=== PATIENT | female | born 1940 | race Caucasian/White ===

== ENCOUNTER 2018-05-26 12:19 | Observation (INO) | payer MEDICARE ==
--- NOTE | 2018-05-26 12:43 | ED ---
Dizziness - HPI Summary HPI Summary: This pt is a 77 y/o female presenting to [facility] via EMS from home for near syncopal episode while on toilet. Pt has hx of dementia is unable to give history. ED nurse reports the pt was in the bathroom having a bowel movement when she became dizzy and diaphoretic. EMS states pt did not have a syncopal episode. Pt's family are on their way to the ED. reports the pt got up from bed this morning to use the bathroom. He states the pt urinated in the toilet and suddenly became unresponsive. Pt began to stare off and was not responding to her . Additionally pt was very diaphoretic. HPI IS LIMITED DUE TO LEVEL 5 CAVEAT - dementia. - History Of Current Complaint Chief Complaint: EDDizziness Stated Complaint: AMS Time Seen by Provider: 05/26/18 12:27 Hx Obtained From: Family/Pest Controller Assistant - , EMS, Other: - ED Nurse Hx From Patient Unobtainable Due To: Dementia Onset/Duration: Resolved Severity Currently: None Character: Lightheaded, Dizzy Aggravating Factor(s): Other - unknown Alleviating Factor(s): Other - unknown Associated Signs And Symptoms: Positive: Diaphoresis. Negative: Fever - Allergies/Home Medications Allergies/Adverse Reactions: Allergies Allergy/AdvReac Type Severity Reaction Status Date / Time No Known Allergies Allergy Verified 03/21/18 13:16 Home Medications: Home Medications Alendronate (NF) [Fosamax (NF)] 70 mg PO WEEKLY 05/26/18 [History Confirmed ] Cholecalciferol (Vitamin D3) [Vitamin D3] 2,000 unit PO BEDTIME 05/26/18 [ History Confirmed 05/27/18] Cyanocobalamin TAB* [Vitamin B12 TAB*] 1,000 mcg PO DAILY 05/26/18 [History] Donepezil TAB* [Aricept 5 MG TAB*] 10 mg PO DAILY 05/26/18 [History Confirmed ] Losartan TAB* [Cozaar TAB*] 25 mg PO DAILY 05/26/18 [History Confirmed 05/26/18] Memantine HCl [Memantine HCl ER] 10 mg PO BEDTIME 05/26/18 [History Confirmed ] Metoprolol Tartrate TAB* [Lopressor TAB*] 25 mg PO DAILY 05/26/18 [History Confirmed 05/26/18] Rosuvastatin (NF) [Crestor] 20 mg PO .4 DAYS A WEEK 05/26/18 [History Confirmed 05/26/18] PMH/Surg Hx/FS Hx/Imm Hx Endocrine/Hematology History: Denies: Hx Anticoagulant Therapy, Hx Diabetes, Hx Systemic Lupus Erythematosus, Hx Thyroid Disease Cardiovascular History: Reports: Hx Hypercholesterolemia, Hx Hypertension, Other Cardiovascular Problems/Disorders - chronic left BBB Denies: Hx Congestive Heart Failure, Hx Pacemaker/ICD Respiratory History: Denies: Hx Asthma, Hx Chronic Obstructive Pulmonary Disease (COPD) GI History: Reports: Hx Diverticulosis, Hx Ileostomy - Reversal of colostomy Denies: Hx Ulcer, Other GI Disorders History: 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 Denies: Hx Dialysis Musculoskeletal History: Reports: Hx Arthritis - BACK, NECK,, Hx Back Problems Denies: Hx Rheumatoid Arthritis, Hx Osteoporosis Sensory History: Reports: Hx Contacts or Glasses Denies: Hx Hearing Aid Opthamlomology History: Reports: Hx Contacts or Glasses Neurological History: Reports: Hx Dementia, Other Neuro Impairments/Disorders - PAIN CLINIC PT Denies: Hx Seizures Psychiatric History: Reports: Hx Anxiety - CONTROL WITH MEDICATION Denies: Hx Substance Abuse - Cancer History Hx Chemotherapy: No - Surgical History Surgery Procedure, Year, and Place: gallbladder removed, bowel surgery Hx Anesthesia Reactions: No - Immunization History Date of Tetanus Vaccine: Unknown Date of Influenza Vaccine: 2012 Infectious Disease History: No Infectious Disease History: Denies: Hx Hepatitis, Hx Human Immunodeficiency Virus (HIV), Traveled Outside the [place] in Last 30 Days - Family History Known Family History: Positive: Unknown - due to level 5 caveat - dementia - Social History Alcohol Use: None Substance Use Type: Reports: None Substance Use Comment - Amount & Last Used: oxycodone Smoking Status (MU): Never Smoked Tobacco Have You Smoked in the Last Year: No Review of Systems - ROS Summary Review of Systems Summary: ROS IS LIMITED DUE TO LEVEL 5 CAVEAT - pt with dementia Positive: Skin Diaphoresis. Negative: Fever Neurological: Other - dizziness, unresponsive All Other Systems Reviewed And Are Negative: No Physical Exam - Summary Physical Exam Summary: VITAL SIGNS: Reviewed. GENERAL: Patient is a well-developed and nourished female who is lying comfortable in the stretcher. Patient is not in any acute respiratory distress. HEAD AND FACE: No signs of trauma. No ecchymosis, hematomas or skull depressions. No sinus tenderness. EYES: PERRLA, EOMI x 2, No injected conjunctiva, no nystagmus. EARS: Hearing grossly intact. Ear canals and tympanic membranes are within normal limits. MOUTH: Oropharynx within normal limits. NECK: Supple, trachea is midline, no adenopathy, no JVD, no carotid bruit, no c- spine tenderness, neck with full ROM. CHEST: Symmetric, no tenderness at palpation LUNGS: Clear to auscultation bilaterally. No wheezing or crackles. CVS: Regular rate and rhythm, S1 and S2 present, no gallops appreciated. Ejection systolic murmur 4/6. ABDOMEN: Soft, non-tender. No signs of distention. No rebound, no guarding, and no masses palpated. Bowel sounds are normal. EXTREMITIES: FROM in all major joints, no edema, no cyanosis or clubbing. NEURO: Alert but not oriented. Pt is unable to give history. No acute neurological deficits. Speech is normal and follows commands. SKIN: Dry and warm GCS: 15 Triage Information Reviewed: Yes Vital Signs On Initial Exam: Initial Vitals Temp Pulse Resp BP Pulse Ox 97 F 76 16 90/53 97 05/26/18 12:26 05/26/18 12:26 05/26/18 12:26 05/26/18 12:26 05/26/18 12:26 Vital Signs Reviewed: Yes Completion Of Physical Exam Limited Due To: Dementia, Level 5 - dementia Diagnostics - Vital Signs Vital Signs Temp Pulse Resp BP Pulse Ox 05/26/18 12:26 97 F 76 16 90/53 97 - Laboratory Result Diagrams: 05/27/18 06:14 05/26/18 12:36 Lab Statement: Any lab studies that have been ordered have been reviewed, and results considered in the medical decision making process. - Radiology Chest XR Xray Interpretation: No Acute Changes - IMPRESSION: No radiographic evidence for acute cardiopulmonary abnormality on this portable chest x-ray. Dr. Smith has reviewed this report. Radiology Interpretation Completed By: Radiologist - CT Brain CT CT Interpretation: No Acute Changes - IMPRESSION: 1. No evidence for acute intracranial abnormality. 2. Diffuse atrophy and findings suggestive of mild chronic small vessel ischemic changes. Dr. Smith has reviewed this report. CT Interpretation Completed By: Radiologist - EKG 12:37 Cardiac Rate: NL - at 77 bpm EKG Rhythm: Sinus Rhythm EKG Interpretation: LBBB. EKG Comparison: No Significant Change - similar to prior EKG on 07/12/14. Dizzy Course/Dx - Course Assessment/Plan: Patient is a 77-year-old female who presents to the emergency department via ambulance with a chief complaint of near syncopal episode and diaphoresis. I'm unable to obtain any history from the patient since she is demented and she is unable to give any history. She has past medical history significant for hypertension, dyslipidemia, coronary artery disease, a left bundle branch block, dementia, renal injury and chronic back pain. EKG shows a sinus rhythm at 70 bpm. The patient has a left bundle branch block. EKG is similar to a previous EKG done on 07/12/14. Blood work without any significant abnormality except for BUN at 25 and creatinine 113, glucose 146, calcium 10.5, urinalysis shows 2+ protein, trace ketones, leukocytes trace, white blood cells of 3+, red blood cells of 1+, positive squamous epithelial cells, bacteria 1+. Chest x-ray impression: Negative for an acute pathology. Head CT impression: No evidence for acute intracranial abnormality. Initially the patient was slightly hypertensive therefore the patient was given IV fluids. She was started on Rocephin 2 g IV for possible UTI. At this time I discussed my physical exam and findings with Dr. Pradhan, from the hospitalist services, who accepted the patient for admission. - Diagnoses Provider Diagnoses: Unresponsive episode, UTI (urinary tract infection) - Provider Notifications Discussed Care Of Patient With: Chidi Pradhan - hospitalist Time Discussed With Above Provider: 14:37 Instructed by Provider To: Admit As Inpatient Discharge - Sign-Out/Discharge Documenting (check all that apply): Patient Departure [place] [facility] [facility] [place] Condition: Stable Disposition: ADMITTED TO [facility] - Billing Disposition and Condition Condition: STABLE Disposition: Admitted to [facility] - Attestation Statements Document Initiated by Scribe: Yes Documenting Scribe: Magalys Potts Provider For Whom Scribe is Documenting (Include Credential): Benigno Smith MD Scribe Attestation: IMagalys, scribed for Benigno Smith MD on 09/26/18 at 0746. Scribe Documentation Reviewed: Yes Provider Attestation: The documentation as recorded by the scribe, Magalys Potts accurately reflects the service I personally performed and the decisions made by me, Benigno Smith MD
[2018-05-26] MEDS ORDERED: NS 0.9% 1000 ML* 1,000 ML IV SCH (12:45)
[2018-05-26 12:48] LABS: ABS Basophils 0 10^3/ul (0-0.2); ABS Eosinophils 0.1 10^3/ul (0-0.6); ABS Lymphocytes 0.9 10^3/ul (1.0-4.8); ABS Monocytes 0.6 10^3/ul (0-0.8); ABS Nucleated RBC 0 10^3/ul; Eosinophil % 0.6 % (0-6); Hematocrit 40 % (35-47); Hemoglobin 13.6 g/dl (12.0-16.0); Lymphocyte % 9.8 % (25-47); Mean Corpuscular HGB Conc 34 g/dl (31-36); Mean Corpuscular Hemoglobin 32 pg (27-31); Mean Corpuscular Volume 94 fL (80-97); Nucleated Red Blood Cells % 0.1; Platelet Count 140 10^3/ul (150-450); Red Blood Count 4.27 10^6/ul (4.00-5.40); Red Cell Distribution Width 13 % (10.5-15); White Blood Count 9.7 10^3/ul (3.5-10.8)
--- NOTE | 2018-05-26 13:19 | RAD ---
INDICATION: Near syncope COMPARISON: Similar chest x-ray July 11, 2014 TECHNIQUE: Single AP portable view of the chest was obtained. FINDINGS: Image quality is compromised due to the relative inferiority of a portable chest x-ray. The heart and mediastinum exhibit normal size and contour. The lungs are grossly clear. There is no evidence of a large pleural effusion. Surgical clips overlying the gallbladder fossa are unchanged in the prior x-ray. Visualized bones are normal for the patient's age. IMPRESSION: No radiographic evidence for acute cardiopulmonary abnormality on this portable chest x-ray.
[2018-05-26 13:21] LABS: EGFR Non-African American 46.6 (>60)
[2018-05-26 13:55] LABS: Urine Appearance Cloudy; Urine Blood Negative (Negative); Urine Color Amber; Urine Ketones Trace (Negative); Urine Protein 2+(100 mg/dL) (Negative); Urine Red Blood Cell 1+(3-5/hpf) (Absent); Urine Specific Gravity 1.017 (1.010-1.030); Urine Urobilinogen Positive (Negative); Urine White Blood Cell 3+(>20/hpf) (Absent)
[2018-05-26] MEDS ORDERED: cefTRIAXone(*) 1 GM in NS 0.9% 50 ML* 50 ML IVPB SCH (14:00)
--- NOTE | 2018-05-26 14:01 | RAD ---
INDICATION: Near syncope. COMPARISON: Comparison is made with a prior CT of the brain from July 11, 2014. TECHNIQUE: Contiguous axial sections of the brain were obtained from the skull base to the vertex without contrast. FINDINGS: The ventricles, cisterns and sulci are enlarged consistent with diffuse atrophy. There are small areas of decreased density in the subcortical and periventricular white matter suggestive of mild chronic small vessel ischemic changes. There is no evidence for hemorrhage. No significant focal osseous abnormality is seen. The visualized portion of the paranasal sinuses and mastoid air cells appear clear. IMPRESSION: 1. NO EVIDENCE FOR ACUTE INTRACRANIAL ABNORMALITY. 2. DIFFUSE ATROPHY AND FINDINGS SUGGESTIVE OF MILD CHRONIC SMALL VESSEL ISCHEMIC CHANGES.
[2018-05-26] MEDS ORDERED: cefTRIAXone(*) 2 GM in NS 0.9% 50 ML* 100 ML IVPB ONE (14:12)
[2018-05-26] MEDS: NS 0.9% 1000 ML* 1,000 ML IV SCH (17:59)
--- NOTE | 2018-05-26 18:04 | HP ---
CC: Dr. Omari Raman * HISTORY AND PHYSICAL: DATE OF ADMISSION: 05/26/18 PRIMARY CARE PROVIDER: Dr. Omari Raman. ATTENDING PHYSICIAN: Dr. Chidi Pradhan * (dictated by Ciera Le NP) CHIEF COMPLAINT: Syncopal episode. HISTORY OF PRESENT ILLNESS: Ms. Rasmussen is a 77-year-old female with past medical history significant for chronic low back pain, hypertension, history of gastritis, history of V-tach with exercise stress test, hyperlipidemia, chronic left bundle branch block, dementia, unsteady gait, and moderate aortic stenosis , who according to her has been in her usual state of health, when she was sitting in the toilet this morning, she became dizzy and diaphoretic and had an episode of loss of consciousness. The patient has a history of dementia and most of this history is obtained from her . He denies any recent history of fevers, chills, complaints of chest pain, shortness of breath, nausea , vomiting, or diarrhea. He states that she chronically has low back pain. He states that sometimes her memory is better than others. He states she has had no complaints of urinary symptoms such as dysuria, urgency, or changes in frequency. He reports that due to her unsteady gait, she is no longer walking with a walker and they are assisting her with walking. Due to her syncopal episode, they called EMS and she was brought to the emergency room for further evaluation. While in the emergency room, she has labs showing a positive UA. Her CBC was unremarkable with the exception of thrombocytopenia, which appears to be above her baseline. Also, noted to have an elevated BUN and creatinine. She had a brain CT showing no acute findings. She had an EKG showing a left bundle branch block similar to previous from 2013. Lactic acid 1.7. Hospitalists were asked to evaluate the patient for admission. PAST MEDICAL HISTORY: 1. Chronic low back pain. 2. Hypertension. 3. History of gastritis. 4. History of V-tach with exercise stress test. 5. Hyperlipidemia. 6. Chronic left bundle branch block. 7. Dementia. 8. Unsteady gait. 9. Moderate aortic stenosis. PAST SURGICAL HISTORY: 1. Status post cholecystectomy. 2. Status post cardiac catheterization showing a 30% to 40% LAD stenosis. MEDICATIONS: Home medications include: 1. Vitamin D3 2000 units oral daily. 2. Memantine 28 mg oral daily. 3. Aricept 10 mg oral daily. 4. Metoprolol tartrate 25 mg oral daily. 5. Xanax 0.125 to 0.25 mg 3 times daily as needed for anxiety. 6. Crestor 20 mg oral 4 days a week. 7. Aspirin 81 mg oral daily at bedtime. 8. Omeprazole 40 mg oral daily. 9. Losartan 25 mg oral daily. 10. Vitamin B12 1000 mcg oral daily. 11. Fosamax 70 mg oral weekly. ALLERGIES: No known drug allergies. FAMILY HISTORY: The patient's sister had an PR in her 50s. Denies any family history of diabetes or cancer. SOCIAL HISTORY: The patient's denies any tobacco, alcohol, or recreational drug use. She lives with her with the assistance of a shrub grower and their daughter. Her , Kin Rasmussen, will be her surrogate decision maker in the event she is unable to make decisions for herself. REVIEW OF SYSTEMS: I performed an 11-point review of systems. All the pertinent positives and negatives are mentioned in the history of present illness. The remaining review of systems is negative. PHYSICAL EXAMINATION GENERAL APPEARANCE: The patient is alert, pleasant, appears to be in no acute distress. VITAL SIGNS: Temperature 97, heart rate 76, respiratory rate 16, O2 sat 97% on room air, blood pressure 90/53. HEENT: Normocephalic, atraumatic. Pupils are equal and reactive to light. Extraocular movements are intact. RESPIRATORY: There is no accessory muscle use. Lungs are clear to auscultation. CARDIOVASCULAR: Regular rate and rhythm. S1, S2 present. There is a grade 3/ 6 systolic murmur heard best in the left upper sternal border. There are no rubs or gallops heard. ABDOMEN: Soft, nontender, nondistended. Bowel sounds present x4. EXTREMITIES: No lower extremity edema. DP and PT pulses are 2+ and symmetric. MUSCULOSKELETAL: There is no clubbing or cyanosis noted. The patient exhibits good strength in all extremities. NEUROLOGICAL: The patient is alert and confused. She believes that she is at her home. She is unsure of year or the situation. She is oriented to person. Cranial nerves II through XII are grossly intact. PSYCHOLOGICAL: The patient is calm and cooperative. SKIN: There are no rashes or abnormalities seen. DIAGNOSTIC STUDIES/LAB DATA: Sodium 140, potassium 4.6, chloride 106, CO2 27, BUN 25, creatinine 1.13, glucose 146. White blood cell count 9.7, hemoglobin 13.6, hematocrit 40, platelet count 140. Lactic acid 1.7. Urinalysis shows 2+ protein, trace ketones, 1+ bilirubin, positive urobilinogen , trace leukocyte esterase, 3+ wbc's, 1+ rbc's, squamous epithelial cells present, urine bacteria 1+, hyaline casts present. EKG shows a sinus rhythm, left bundle branch block, rate of 70. There are no acute signs of ischemia, this is similar to previous from 07/12/14. Brain CT from today. Radiologist's impression, no evidence for acute intracranial abnormality. Diffuse atrophy and findings suggestive of mild chronic small vessel ischemic changes. Chest x-ray from today. Radiologist's impression: No radiographic evidence for acute cardiopulmonary abnormalities on this portable chest x-ray. IMPRESSION: Ms. Rasmussen is a 77-year-old female with a past medical history significant for chronic low back pain, hypertension, gastritis, history of ventricular tachycardia, hyperlipidemia, chronic left bundle branch block, dementia, unsteady gait, moderate aortic stenosis, who presents to the emergency room after a syncopal episode at home today. She will be admitted as an observation for syncope and urinary tract infection. ASSESSMENT/PLAN: 1. Syncope. I suspect this is a vasovagal episode as the patient was sitting on the toilet when this occurred. We will monitor her on telemetry. Her last echo was done in 2013. I am going to hold off on another echo; at that time, she had a moderate aortic stenosis. I will check orthostatic vital signs and give her some gentle IV hydration. 2. Urinary tract infection. The patient appears to have a positive UA. I will give her ceftriaxone, IV fluids. At this time, she has no leukocytosis. We will recheck her labs tomorrow. 3. Acute kidney injury. I suspect this is prerenal. I am going to give her some IV fluids, recheck her labs tomorrow. If she continues to have elevated BUN and creatinine, we can check a FENa. 4. Chronic low back pain. The patient will have supportive care. 5. Hypertension. I am going to continue her metoprolol tartrate with hold parameters. I am going to hold her losartan in the setting of an acute illness and her hypotension. 6. Hyperlipidemia. She will be continued on a statin. She will have a substitute of atorvastatin here and resumed on her home Crestor at discharge. 7. Dementia. She will be continued on her home memantine and Aricept. 8. Aortic stenosis. The patient has known moderate aortic stenosis. She should continue to follow with Cardiology. 9. Fluids, electrolytes, and nutrition. Heart-healthy diet. 10. Code status. Full code. 11. DVT prophylaxis. She is a high risk and will have subcu heparin. 12. Disposition. Observation. TIME SPENT: Time for this admission was approximately 60 minutes, greater than half of that was spent with the patient and her discussing medications, past medical history, the events leading to her arrival today, performing a physical examination. The case has been reviewed with the attending, Dr. Pradhan, who agrees with the plan of care. Reviewed by NIKIA GOODWIN 05/28/18 1639 [id number]/[facility] #: [id number] MERLE
[2018-05-26] MEDS: Aspirin 81 mg CHEW TAB* 81 MG TAB.CHEW PO SCH (19:57)
[2018-05-26] MEDS: Acetaminophen TAB* 325 MG PO PRN (19:57)
[2018-05-26] MEDS: CMCS Rosuvastatin (NF) 20 MG TAB PO SCH (20:05)
[2018-05-26] MEDS: Heparin VIAL(*) 5000 UNITS/ML VIAL (FIVE THOUSAND) SUBCUT SCH (22:08)
[2018-05-27] MEDS: NS 0.9% 1000 ML* 1,000 ML IV SCH (05:05)
[2018-05-27] MEDS: Heparin VIAL(*) 5000 UNITS/ML VIAL (FIVE THOUSAND) SUBCUT SCH ×3 (05:32→21:48)
[2018-05-27 06:42] LABS: ABS Basophils 0 10^3/ul (0-0.2); ABS Eosinophils 0 10^3/ul (0-0.6); ABS Lymphocytes 1.1 10^3/ul (1.0-4.8); ABS Monocytes 1.1 10^3/ul (0-0.8); ABS Neutrophils 8.8 10^3/ul (1.5-7.7); ABS Nucleated RBC 0 10^3/ul; Eosinophil % 0.4 % (0-6); Hematocrit 30 % (35-47); Hemoglobin 10.5 g/dl (12.0-16.0); Mean Corpuscular HGB Conc 35 g/dl (31-36); Mean Corpuscular Hemoglobin 32 pg (27-31); Mean Corpuscular Volume 93 fL (80-97); Mean Platelet Volume 10.5 um3 (7.4-10.4); Nucleated Red Blood Cells % 0.1; Platelet Count 98 10^3/ul (150-450); Red Blood Count 3.27 10^6/ul (4.00-5.40); Red Cell Distribution Width 13 % (10.5-15); White Blood Count 11.1 10^3/ul (3.5-10.8)
[2018-05-27] MEDS: Acetaminophen TAB* 325 MG PO PRN ×2 (11:11→20:20)
[2018-05-27] MEDS: Donepezil TAB* 5 MG PO SCH (11:13)
[2018-05-27] MEDS: Cyanocobalamin TAB* 500 MCG PO SCH (11:13)
[2018-05-27] MEDS: Metoprolol Tartrate TAB* 25 MG PO SCH (11:13)
[2018-05-27] MEDS: Omeprazole CAP* 20 MG PO SCH (11:14)
[2018-05-27] MEDS: Memantine XR CAP* 28 MG CAP.XR PO SCH (11:15)
[2018-05-27] MEDS: cefTRIAXone(*) 1 GM in NS 0.9% 50 ML* 50 ML IVPB SCH (15:34)
--- NOTE | 2018-05-27 17:01 | PN ---
Subjective Date of Service: 05/27/18 Interval History: Patient with dementia, able to state name, and identify , unable to activity participate in conversation. Patient denies chest pain or shortness of breath, unclear if she understands questions. Family History: Unchanged from Admission Social History: Unchanged from Admission Past Medical History: Unchanged from Admission Objective Active Medications: Acetaminophen (Tylenol Tab*) 650 mg PO Q4H PRN PRN Reason: FEVER/PAIN Last Admin: 05/27/18 11:11 Dose: 650 mg Aspirin (Aspirin 81 Mg Chew Tab*) 81 mg PO BEDTIME [facility] Last Admin: 05/26/18 19:57 Dose: 81 mg Cyanocobalamin (Vitamin B12 Tab*) 1,000 mcg PO DAILY [facility] Last Admin: 05/27/18 11:13 Dose: 1,000 mcg Donepezil HCl (Aricept Tab*) 10 mg PO DAILY [facility] Last Admin: 05/27/18 11:13 Dose: 10 mg Heparin Sodium (Porcine) (Heparin Vial(*)) 5,000 units SUBCUT Q8HR [facility] Last Admin: 05/27/18 15:34 Dose: 5,000 units Ceftriaxone Sodium 1 gm/ (Sodium Chloride) 50 mls @ 200 mls/hr IVPB Q24H [facility] Last Admin: 05/27/18 15:34 Dose: 200 mls/hr Memantine (Namenda Xr Cap*) 28 mg PO DAILY [facility] Last Admin: 05/27/18 11:15 Dose: 28 mg Metoprolol Tartrate (Lopressor Tab*) 25 mg PO DAILY [facility] Last Admin: 05/27/18 11:13 Dose: 25 mg Omeprazole (Prilosec Cap*) 40 mg PO DAILY [facility] Last Admin: 05/27/18 11:14 Dose: 40 mg Rosuvastatin Calcium (Crestor (Nf)) 20 mg PO [id number]@2100 [facility] Last Admin: 05/26/18 20:05 Dose: 20 mg Vital Signs - 8 hr 05/27/18 11:21 Temperature 98.9 F Pulse Rate 76 Respiratory 16 Rate Blood Pressure 125/44 (mmHg) O2 Sat by Pulse 96 Oximetry Oxygen Devices in Use Now: None Appearance: appears comfortable resting in bed, no acute distress, minimal verbal communication - states is baseline. Eyes: No Scleral Icterus Ears/Nose/Mouth/Throat: Mucous Membranes Moist Neck: NL Appearance and Movements; NL JVP, Trachea Midline Respiratory: Symmetrical Chest Expansion and Respiratory Effort, Clear to Auscultation Cardiovascular: No Edema, - - S1 S2 murmur Abdominal: NL Sounds; No Tenderness; No Distention Extremities: No Edema, No Clubbing, Cyanosis Skin: No Rash or Ulcers Neurological: - - alert to person, confused to place, time and situation Nutrition: Taking PO's Result Diagrams: 05/28/18 07:34 05/28/18 07:34 Microbiology and Other Data: Microbiology 05/26/18 13:26 Urine Culture - Preliminary Urine Escherichia Coli Assess/Plan/Problems-Billing Assessment: Ms. Rasmussen is a 77 y.o female with a past medical hx of dementia. htn,hld, aortic stenosis who presented to the ER with syncopal episode while on the toilet. Patient had routine lab work and found to have a UTI - Patient Problems (1) Syncope Current Visit: Yes Status: Acute Code(s): R55 - SYNCOPE AND COLLAPSE SNOMED Code(s): 665942044 Comment: - suspect this is related to underlying UTI vs vasovagel as the patient was using the bathroom during the episode - will get ECHO tomorrow (2) UTI (urinary tract infection) Current Visit: Yes Status: Acute Comment: -Ecoli - will contiue ceftriaxone - patient with low grade fever today 100.4 (3) DAVID (acute kidney injury) Current Visit: No Status: Acute Priority: High Onset Date: 07/11/14 Code (s): N17.9 - ACUTE KIDNEY FAILURE, UNSPECIFIED SNOMED Code(s): 26925143 Comment: - suspect this is related to UTI and dehydration - will continue to monitor - repeat BMP in AM (4) CAD (coronary artery disease) Current Visit: No Status: Chronic Code(s): I25.10 - ATHSCL HEART DISEASE OF [place] CORONARY ARTERY W/O ANG PCTRS SNOMED Code(s): 10493945 Comment: continue metoprolol (5) Dementia Current Visit: No Status: Chronic Code(s): F03.90 - UNSPECIFIED DEMENTIA WITHOUT BEHAVIORAL DISTURBANCE SNOMED Code(s): 77273012 Comment: continue aricept and namenda - supportive care (6) Dyslipidemia Current Visit: No Status: Chronic Code(s): E78.5 - HYPERLIPIDEMIA, UNSPECIFIED SNOMED Code(s): 699759018 Comment: continue crestor (7) HTN (hypertension) Current Visit: No Status: Chronic Code(s): I10 - ESSENTIAL (PRIMARY) HYPERTENSION SNOMED Code(s): 22508972 Comment: controlled- continue metoprolol (8) DVT prophylaxis Current Visit: Yes Status: Acute Code(s): TIN8144 - SNOMED Code(s): 190832292 Comment: HSQ (9) Full code status Current Visit: Yes Status: Acute Code(s): Z78.9 - OTHER SPECIFIED HEALTH STATUS SNOMED Code(s): 480521397 Status and Disposition: OBV - home with [facility]NS referral for increase help at home.
[2018-05-27] MEDS: Aspirin 81 mg CHEW TAB* 81 MG TAB.CHEW PO SCH (20:21)
[2018-05-27] MEDS: CMCS Rosuvastatin (NF) 20 MG TAB PO SCH (20:21)
[2018-05-28] MEDS: Heparin VIAL(*) 5000 UNITS/ML VIAL (FIVE THOUSAND) SUBCUT SCH ×2 (05:54→15:03)
[2018-05-28 08:15] LABS: ABS Basophils 0 10^3/ul (0-0.2); ABS Eosinophils 0.1 10^3/ul (0-0.6); ABS Lymphocytes 1.1 10^3/ul (1.0-4.8); ABS Monocytes 0.6 10^3/ul (0-0.8); ABS Neutrophils 5.5 10^3/ul (1.5-7.7); ABS Nucleated RBC 0 10^3/ul; Eosinophil % 1.3 % (0-6); Hematocrit 31 % (35-47); Hemoglobin 10.9 g/dl (12.0-16.0); Lymphocyte % 14.6 % (25-47); Mean Corpuscular HGB Conc 35 g/dl (31-36); Mean Corpuscular Hemoglobin 32 pg (27-31); Mean Corpuscular Volume 93 fL (80-97); Mean Platelet Volume 10.9 um3 (7.4-10.4); Nucleated Red Blood Cells % 0; Platelet Count 92 10^3/ul (150-450); Red Blood Count 3.35 10^6/ul (4.00-5.40); Red Cell Distribution Width 14 % (10.5-15); White Blood Count 7.4 10^3/ul (3.5-10.8)
[2018-05-28 08:26] LABS: EGFR Non-African American 66.5 (>60)
[2018-05-28] MEDS: Omeprazole CAP* 20 MG PO SCH (10:23)
[2018-05-28] MEDS: Metoprolol Tartrate TAB* 25 MG PO SCH (10:23)
[2018-05-28] MEDS: Memantine XR CAP* 28 MG CAP.XR PO SCH (10:23)
[2018-05-28] MEDS: Cyanocobalamin TAB* 500 MCG PO SCH (10:23)
[2018-05-28] MEDS: Donepezil TAB* 5 MG PO SCH (10:24)
--- NOTE | 2018-05-28 11:29 | ECHO ---
Patient: JOSIE DURHAM [facility] Rec#: [id number] : 1940 Date: 05/28/2018 Age: 77y Height: 154.94 cm / 61.0 in Weight: 53.52 kg / 118.0 lbs Sex: F BSA: 1.51 Room#: [facility] Admit Date#: 05/26/2018 Type: Inpatient Referring: Francesca Corona Reading: Glo Miranda MD Cook 3 Pastry: Ciera Moreno RDCS CC: Omari Rmaan MD Transthoracic Echocardiogram Indication: Syncope BP: 155/67 HR: 72 Rhythm: NSR Findings History: Dementia, HTN, HLD, VT, LBBB, moderate aortic stenosis, 3/6 systolic murmur. Technical Comments: The study quality is fair. Completed at 1000. Left Ventricle: The left ventricular chamber size is normal. Mild concentric left ventricular hypertrophy is observed. There is a prominent septal knuckle. Mild global hypokinesis of the left ventricle is observed. There is normal left ventricular systolic function. The estimated ejection fraction is 50-55%. There is a left ventricular septal wall motion abnormality observed, possibly due to the presence of a left bundle branch block. Abnormal left ventricular diastolic filling is observed, consistent with impaired relaxation. Left Atrium: The left atrium is mildly dilated. Right Ventricle: Moderator Band present. The right ventricular cavity size is normal. The right ventricular global systolic function is normal. Right Atrium: The right atrial cavity size is normal. Aortic Valve: The aortic valve structure is not well visualized.Possibility of 4 cusps on short axis view, but heavy calcific sclerosis makes it difficult to confirm leaflet anatomy. Moderate aortic leaflet calcification is visualized.hazy calcification noted in the aorta post valve. Systolic excursion of the aortic valve cusps is reduced. There is trace to mild aortic regurgitation.Central jet. On short axis view jet at 1 o'clock ?AI vs small outflow VSD. There is moderate aortic stenosis. The mean gradient of the aortic valve is 32.71 mmHg. The peak instantaneous gradient of the aortic valve is 45.33 mmHg. The aortic valve area, by peak velocities, is calculated at 1.2 cm2. The aortic valve area, by VTI's, is calculated at 1.1 cm2. The highest aortic valve velocity was obtained with the standard probe from the A5C view. Mitral Valve: There is mitral annular calcification. The mitral valve leaflets are mildly thickened. There is a trace of mitral regurgitation. There is no evidence of mitral stenosis. Tricuspid Valve: The tricuspid valve leaflets are mildly thickened. There is moderate tricuspid regurgitation. The right ventricular systolic pressure is estimated at 37 mmHg. There is evidence of mild pulmonary hypertension. There is no tricuspid stenosis. Pulmonic Valve: The pulmonic valve appears normal. There is a trace pulmonic regurgitation. There is no pulmonic stenosis. Pericardium: There is no significant pericardial effusion. A pericardial fat pad is visualized. Aorta: There is no dilatation of the ascending aorta. There is no dilatation of the aortic arch. The aortic root is normal in size. Pulmonary Artery: The main pulmonary artery is not well visualized. Venous: The inferior vena cava appears normal in size. There is a greater than 50% respiratory change in the inferior vena cava dimension. Conclusions Mild concentric left ventricular hypertrophy is observed. There is normal left ventricular systolic function. The estimated ejection fraction is 50-55%. There is a left ventricular septal wall motion abnormality observed, possibly due to the presence of a left bundle branch block. Abnormal left ventricular diastolic filling is observed, consistent with impaired relaxation. The right ventricular global systolic function is normal. There is trace to mild aortic regurgitation. There is moderate aortic stenosis and could not confirm number of AV cusps (see text). -The mean gradient of the aortic valve is 32.71 mmHg. -The aortic valve area, by peak velocities, is calculated at 1.2 cm2. -The aortic valve area, by VTI's, is calculated at 1.1 cm2. -DI is 0.36 There is a trace of mitral regurgitation. There is moderate tricuspid regurgitation. There is evidence of mild pulmonary hypertension: estimated at 37 mmHg. Small diastolic jet on edge of aortic and pulmonic valves with differential of small VSD, AI or PI. If clinically indicated a ALFRED could confirm aortic valve anatomy and determine the etiology of annular jet on the aortic valve and evaluate post valvular calcification noted. Compared with echo of 05/08/11, ventricular function not significantly changed, has progressed, [place] previously 1.2 cm2, mean gradient previously 13 mmHg. The degree of TR has increased from mild. PA pressure not significantly changed, prviously 34 mmHg. Measurements Name Value Normal Range RVIDd (AP) 2D 3 cm (0.9 - 2.6) RVDdMajor (2D) 3.5 cm (2.2 - 4.4) RAd ISD 4CH 4.6 cm (3.4 - 4.9) RA (A4C)W 3.5 cm (2.9 - 4.6) IVSd (2D) 1.2 cm (0.6 - 1) LVPWd (2D) 1.1 cm (0.6 - 1) LVIDd (2D) 3.7 cm (3.6 - 5.4) LVIDs (2D) 2.4 cm - LV FS (2D) 35 % (25 - 45) Aortic Annulus 1.9 cm (1.4 - 2.6) Ao root diameter (2D) 2.4 cm (2.1 - 3.5) Ascending Ao 2.9 cm (2.1 - 3.4) Aortic arch 2.6 cm (1.8 - 3.4) LA dimension (AP) 2D 3.7 cm (2.3 - 3.8) LAd ISD 4CH 4.6 cm (2.9 - 5.3) LA ISD 4CH W 4.9 cm (2.5 - 4.5) Name Value Normal Range LA ESV SP 4CH (A/L) 52 ml - LA ESV SP 2CH (A/L) 63 ml - LA ESV BP (A/L) 59 ml - LA ESV BP (A/L) index 39 ml/m2 - LA ESV SP 4CH (MOD) 43 ml - LA ESV SP 2CH (MOD) 57 ml - Name Value Normal Range MV E-wave Vmax 0.64 m/sec - MV deceleration time 334.06 msec - MV A-wave Vmax 1.09 m/sec - MV E:A ratio 0.59 ratio - LV septal e' Vmax 0.06 m/sec - LV lateral e' Vmax 0.05 m/sec - LV E:e' septal ratio 10.67 ratio - LV E:e' lateral ratio 12.8 ratio - Name Value Normal Range AV Vmax 3.4 m/sec - AV VTI 82.9 cm - AV peak gradient 45.33 mmHg - AV mean gradient 32.71 mmHg - LVOT diameter 2 cm - LVOT Vmax 1.3 m/sec - LVOT VTI 30.09 cm - LVOT peak gradient 6.39 mmHg - LVOT mean gradient 3.65 mmHg - DOI (VTI) 0.36 ratio - [place] (continuity Vmax) 1.2 cm2 - [place] (continuity VTI) 1.1 cm2 - LEELA Vmax 1.38 m/sec - Name Value Normal Range TR Vmax 2.9 m/sec - TR peak gradient 34 mmHg - RAP 3 mmHg - RVSP 37 mmHg - IVC diameter 1.6 cm - Name Value Normal Range PV Vmax 1.44 m/sec - PV peak gradient 8.33 mmHg -
[2018-05-28] MEDS: cefTRIAXone(*) 1 GM in NS 0.9% 50 ML* 50 ML IVPB SCH (15:08)
--- NOTE | 2018-05-28 15:49 | PN ---
Subjective Date of Service: 05/28/18 Interval History: Up sitting in the chair. alert, oriented to self, confused to place, time and situation. Patient unable to active participate in conversation. continues to deny chest pain or shortness of breath. Family History: Unchanged from Admission Social History: Unchanged from Admission Past Medical History: Unchanged from Admission Objective Active Medications: Acetaminophen (Tylenol Tab*) 650 mg PO Q4H PRN PRN Reason: FEVER/PAIN Last Admin: 05/27/18 20:20 Dose: 650 mg Aspirin (Aspirin 81 Mg Chew Tab*) 81 mg PO BEDTIME [facility] Last Admin: 05/27/18 20:21 Dose: 81 mg Cyanocobalamin (Vitamin B12 Tab*) 1,000 mcg PO DAILY [facility] Last Admin: 05/28/18 10:23 Dose: 1,000 mcg Donepezil HCl (Aricept Tab*) 10 mg PO DAILY [facility] Last Admin: 05/28/18 10:24 Dose: 10 mg Heparin Sodium (Porcine) (Heparin Vial(*)) 5,000 units SUBCUT Q8HR [facility] Last Admin: 05/28/18 15:03 Dose: 5,000 units Ceftriaxone Sodium 1 gm/ (Sodium Chloride) 50 mls @ 200 mls/hr IVPB Q24H [facility] Last Admin: 05/28/18 15:08 Dose: 200 mls/hr Memantine (Namenda Xr Cap*) 28 mg PO DAILY [facility] Last Admin: 05/28/18 10:23 Dose: 28 mg Metoprolol Tartrate (Lopressor Tab*) 25 mg PO DAILY [facility] Last Admin: 05/28/18 10:23 Dose: 25 mg Omeprazole (Prilosec Cap*) 40 mg PO DAILY [facility] Last Admin: 05/28/18 10:23 Dose: 40 mg Rosuvastatin Calcium (Crestor (Nf)) 20 mg PO [email or web address] [facility] Last Admin: 05/27/18 20:21 Dose: 20 mg Vital Signs - 8 hr 05/28/18 05/28/18 05/28/18 08:21 11:52 13:20 Temperature 98.7 F 98.2 F 98.3 F Pulse Rate 65 84 73 Respiratory 16 16 14 Rate Blood Pressure 151/59 114/58 136/54 (mmHg) O2 Sat by Pulse 97 99 96 Oximetry Oxygen Devices in Use Now: None Appearance: confused, sitting in the chair , no acute distress, tearful Eyes: No Scleral Icterus Ears/Nose/Mouth/Throat: Clear Oropharnyx, Mucous Membranes Moist Neck: NL Appearance and Movements; NL JVP, Trachea Midline Respiratory: Symmetrical Chest Expansion and Respiratory Effort, Clear to Auscultation Cardiovascular: No Edema, - - s1s2 regular, systolic murmur Abdominal: NL Sounds; No Tenderness; No Distention Extremities: No Edema, No Clubbing, Cyanosis Skin: No Rash or Ulcers Neurological: - - confused to place, time and situation. Nutrition: Taking PO's Result Diagrams: 05/28/18 07:34 05/28/18 07:34 Microbiology and Other Data: Microbiology 05/26/18 13:26 Urine Culture - Preliminary Urine Escherichia Coli Assess/Plan/Problems-Billing Assessment: Ms. Rasmussen is a 77 y.o female with a past medical hx of dementia. htn,hld, aortic stenosis who presented to the ER with syncopal episode while on the toilet. Patient had routine lab work and found to have a UTI - Patient Problems (1) Syncope Status: Acute Code(s): R55 - SYNCOPE AND COLLAPSE SNOMED Code(s): 142152461 Comment: - suspect this is related to underlying UTI vs vasovagel as the patient was using the bathroom during the episode - this also could be related to dehydration and Aortic stenosis - spoke to Dr. Miranda about ECHO finding and patient ok can follow up with cardiology as an outpatient - Patient has an upcoming appointment in the office - ECHO mild concentric left ventricular hypertrophy is observed. normal left ventricular systolic function. EF 50-55%, left ventricular septal wall motion abnormality observed, possibly due to the presence of a left bundle branch block. Abnormal left ventricular diastolic filling is observed, consistent with impaired relaxation. The right ventricular global systolic function is normal. trace to mild AR moderate and could not confirm number of AV cusps trace of MR. moderate TR. There is evidence of mild pulmonary hypertension: estimated at 37 mmHg. Small diastolic jet on edge of aortic and pulmonic valves with differential of small VSD, AI or PI. Compared with echo of 05/08/11, ventricular function not significantly changed, has progressed, the degree of TR has increased from mild. PA pressure not significantly changed, prviously 34 mmHg. (2) UTI (urinary tract infection) Status: Acute Comment: - Ecoli - will change to vantin 200 mg bid for 7 days (3) DAVID (acute kidney injury) Status: Acute Priority: High Onset Date: 07/11/14 Code(s): N17.9 - ACUTE KIDNEY FAILURE, UNSPECIFIED SNOMED Code(s): 25776369 Comment: - suspect this is related to UTI and dehydration - will continue to monitor - repeat BMP in AM (4) CAD (coronary artery disease) Status: Chronic Code(s): I25.10 - ATHSCL HEART DISEASE OF [place] CORONARY ARTERY W/O ANG PCTRS SNOMED Code(s): 93861874 Comment: continue metoprolol (5) Dementia Status: Chronic Code(s): F03.90 - UNSPECIFIED DEMENTIA WITHOUT BEHAVIORAL DISTURBANCE SNOMED Code(s): 56229356 Comment: continue aricept and namenda - supportive care (6) Dyslipidemia Status: Chronic Code(s): E78.5 - HYPERLIPIDEMIA, UNSPECIFIED SNOMED Code(s) : 051844487 Comment: continue crestor (7) HTN (hypertension) Status: Chronic Code(s): I10 - ESSENTIAL (PRIMARY) HYPERTENSION SNOMED Code( s): 67702838 Comment: controlled- continue metoprolol (8) DVT prophylaxis Status: Acute Code(s): DEK0121 - SNOMED Code(s): 076617958 Comment: CJQ (9) Full code status Status: Acute Code(s): Z78.9 - OTHER SPECIFIED HEALTH STATUS SNOMED Code(s) : 934305396 Status and Disposition: OBV - home with VNS referral for increase help at home.
[2018-05-28 18:12] VITALS: BP 128/70
--- NOTE | 2018-05-29 21:14 | DS ---
CC: Dr. Omari Raman; Dr. lGo Miranda.* DISCHARGE SUMMARY: DATE OF ADMISSION: 05/26/18. DATE OF DISCHARGE: 05/28/18. PROVIDER: Francesca Corona NP. ATTENDING PHYSICIAN: Dr. Kayla Verduzco * (dictated by Francesca Corona NP). PRIMARY CARE PROVIDER: Dr. Omari Raman. PRIMARY DIAGNOSES: 1. Syncope. 2. Urinary tract infection. SECONDARY DIAGNOSES: 1. Chronic low back pain. 2. Hypertension. 3. Gastritis. 4. History of ventricular tachycardia with exercise stress test. 5. Hyperlipidemia. 6. Left bundle-branch block. 7. Dementia. 8. Unsteady gait. 9. Moderate aortic stenosis. STUDIES COMPLETED WHILE IN THE HOSPITAL: She had a CT of the brain on . Radiologist Impression: No evidence of acute intracranial abnormality, diffuse atrophy and findings suggestive of chronic small vessel ischemic changes. She had a chest x-ray on 05/26/18. Radiologist Impression: No radiographic evidence of acute cardiopulmonary abnormality on this portable chest x-ray. She had an electrocardiogram on 05/26/18, which showed sinus rhythm at a rate of 70 with the left bundle-branch block. She had a transthoracic echocardiogram on 05/28/18, conclusion: Mild concentric left ventricular hypertrophy is observed. There is normal left ventricular systolic function at estimated ejection fraction of 50 to 55%. There is left ventricular septal wall motion abnormality observed possibly due to the presence of left bundle- branch block. Abnormal left ventricular diastolic filling is observed consistent with impaired relaxation. The right ventricular global systolic function is normal. There is [id number]-ub-ymla aortic regurgitation. There is moderate aortic stenosis and could not confirm the number of AV cuff. The mean gradient of the aortic valve is 32.71. The aortic valve area by peak velocity is calculated at 1.2. The aortic valve area by VTIs is calculated at 1.1. There is trace mitral regurg. There is moderate tricuspid regurgitation. There is evidence of mild pulmonary hypertension. A small diastolic jet on the edge of the aortic and pulmonic valves, which is differential of a small VSD, AI or PI. If it was recommended for clinically indicated ATE confirmed aortic valve anatomy and determined the etiology of angular jet on the aortic valve and evaluate pulse valvular calcification. When compared to echo from 05/08/11 , the ventricular function is not significantly changed, has progressed [place] previously 1.2 mean gradient was 13, the degree of TR has increased from mild, the PA pressure is not significantly changed from the previous echo. DISCHARGE MEDICATIONS: New home medications: 1. Vantin 200 mg p.o. b.i.d. for 7 days. Continued home medications: 1. Fosamax 70 mg p.o. weekly. 2. Alprazolam 0.125 p.o. t.i.d. as needed for anxiety. 3. Aspirin 81 mg p.o. daily. 4. Vitamin D3 2000 units p.o. daily. 5. Vitamin B12 1000 mcg p.o. daily. 6. Aricept 10 mg p.o. daily. 7. Memantine 10 mg p.o. at bedtime. 8. Metoprolol 25 mg p.o. daily. 9. Omeprazole 40 mg p.o. at bedtime. 10. Crestor 20 mg 4 days a week. Discontinued medications: 1. Losartan 25 mg. During this hospitalization, the patient's blood pressure, she was hypotensive to normotensive for the blood pressure initially in the 80s to 90s and on the day of discharge, her blood pressure was in range of 114 to 136. I did hold her losartan during this hospitalization. She should follow up with her primary care provider for further instruction on dosing of her losartan. HISTORY OF PRESENT ILLNESS AND HOSPITAL COURSE: Ms. Rasmussen is a 77-year-old female with a past medical history significant for chronic low back pain, hypertension, gastritis, hyperlipidemia, chronic left bundle-branch block, dementia, unsteady gait, and moderate aortic stenosis, who according to her , has been in her usual state of health when she was sitting on the toilet this morning became dizzy and diaphoretic and had episode of loss of consciousness. The patient has a history of dementia and most of this history was obtained from the as the patient is unable to actively participate and communicate in conversation. Her reports that the patient has not had any fever, chills or chest pain. He has not reported any nausea, vomiting or diarrhea. He does report that her gait is unsteady and she is no longer walking with a walker and they are assisting her with walking. Due to the patient's syncopal episode at home, EMS was called and she was brought to the emergency room for further evaluation. While in the emergency room, her lab work showed positive for urinary tract infection. Her culture did grow E. coli, which was pansensitive. She did have a mild elevation in her WBCs during this hospitalization to 11.1. On the day of discharge, her WBC count was 7.4. Her BMP was essentially within normal limits. The patient had no further dizziness or syncopal episode. She was monitored on telemetry throughout the hospitalization. There was no ectopy on the monitor. The patient was found to be hypotensive on the day of admission. Her blood pressure improved with hydration throughout her admission and on the day of discharge, her blood pressure was 128/70. At this time, Ms. Rasmussen is stable for discharge home. Vital signs are as follows: Blood pressure was 128/70, heart rate was 73, temperature was 98.3, respirations were 14, O2 saturation was 96%. DISCHARGE PLAN: Ms. Rasmussen will be discharged back home. Activity as tolerated. She should have one assist with transferring and ambulation. She would benefit from in-home physical therapy for strength training and gait mobility. Diet, she should drink plenty of fluids and continue a heart- healthy diet. 1. Urinary tract infection. She did receive 3 days of ceftriaxone 1 g IV during her hospitalization. I will continue her on Vantin 200 mg p.o. b.i.d. for 7 days for complete treatment of her urinary tract infection. 2. Syncopal episode. I suspect that her syncope could be related to dehydration and moderate aortic stenosis, complicated by urinary tract infection or possibly vasovagal as this did occur when she was using the rest room. She did have a transthoracic echocardiogram during this hospitalization, which showed changes with increase in aortic stenosis. I did consult Cardiology , Dr. Miranda, who is her primary care chronometer assembler, who states that the patient can be further evaluated as an outpatient and she will see her in her office as scheduled. She has an appointment scheduled the beginning of June. Again, I suspect that her syncopal episode was related to dehydration , UTI, and her aortic stenosis, but more likely related to the urinary tract infection. 3. Dementia. She should continue on her Aricept. 4. Hypertension. We did hold her losartan during this hospitalization due to her hypotension. I did discontinue that on the day of discharge. She should follow up with her primary care provider for recommendations on whether to resume losartan. The family was instructed not to continue losartan until followup. I did continue her on her atenolol daily. Her blood pressure again at the time of discharge was 128/70 and her heart rate was 73. There were no other medication changes during this hospitalization. The patient should follow up with her primary care provider as scheduled tomorrow at 1:20. The family, and daughter were instructed to return to the emergency room for profound weakness, nausea, vomiting, diarrhea, chest pain, shortness of breath or any further syncopal episodes. The daughter and verbalized understanding. This is a summarization of her hospitalization. If further details are needed, please obtain her entire medical record. TIME SPENT: Time spent on this discharge was approximately 60 minutes, greater than half that time was spent with the patient discussing discharge plans and instructions. CONDITION ON DISCHARGE: Stable. FRANCESCA CORONA NP [id number]/[facility] #: [id number] MERLE
== END 2018-05-28 18:00 | disposition home or self-care (01) ==
LOC: ED 12:19 → MED 15:17
PROVIDERS: ADMIT Internal Medicine; ATTEND Internal Medicine
DX: R55 Syncope and collapse (principal); N39.0 Urinary tract infection, site not specified; N17.9 Acute kidney failure, unspecified; I25.10 Atherosclerotic heart disease of native coronary artery without angina pectoris; M54.5 Low back pain; G89.29 Other chronic pain; I10 Essential (primary) hypertension; K29.70 Gastritis, unspecified, without bleeding; E78.5 Hyperlipidemia, unspecified; E78.00 Pure hypercholesterolemia, unspecified; I44.7 Left bundle-branch block, unspecified; F03.90 Unspecified dementia, unspecified severity, without behavioral disturbance, psychotic disturbance, mood disturbance, and anxiety; I35.0 Nonrheumatic aortic (valve) stenosis; Z79.899 Other long term (current) drug therapy; Z23 Encounter for immunization; Z79.82 Long term (current) use of aspirin; R06.02 Shortness of breath
CPT/HCPCS: 36415; 70450; 71045; 80048; 80053; 81003; 81015; 82550; 83605; 83735; 83880; 84443; 84484; 85025; 86140; 87077; 87086; 87186; 90471; 90686; 93005; 93306; 96361; 96365; 96366; 96372; 99283; A9270-GY; G0008; G0378; G8978-GP-CL; G8979-GP-CK; J0696; J1644

== ENCOUNTER 2018-09-20 17:22 | Emergency (ER) | payer MEDICARE ==
[2018-09-20] MEDS ORDERED: NS 0.9% 1000 ML* 1,000 ML IV ONE (18:21)
--- NOTE | 2018-09-20 18:27 | ED ---
Altered Mental Status - HPI Summary HPI Summary: This patient is a 78 year old F with a history of dementia presenting to [facility] accompanied by her daughters due to a decrease in alertness and increased weakness for the past two days. Patient lives at home with her daughters, who reports recent cough, congestion, fatigue, and decreased appetite. They deny fever. They state she is typically able to communicate her needs and walk by herself. However the past couple of days she has been unable to communicate and cannot ambulate by herself. Daughters addition report seeing blood when she went to the bathroom. They are unsure of the source of bleeding, but state they did not see a BM with the blood. Daughters deny history of blood thinners. Patient is level 5 caveat. - History Of Current Complaint Chief Complaint: EDWeakness Stated Complaint: CONGESTION/LETHARGIC Time Seen by Provider: 09/20/18 18:14 Hx Obtained From: Family/Jewelry Sales Associate Hx From Patient Unobtainable Due To: Dementia Onset/Duration: Still Present, Gradually Timing: Lasting Days Character: Responsiveness Aggravating Factor(s): Unknown Associated Signs And Symptoms: Positive: Weakness. Negative: Fever - Allergies/Home Medications Allergies/Adverse Reactions: Allergies Allergy/AdvReac Type Severity Reaction Status Date / Time No Known Allergies Allergy Verified 09/20/18 17:36 PMH/Surg Hx/FS Hx/Imm Hx Endocrine/Hematology History: Denies: Hx Anticoagulant Therapy, Hx Diabetes, Hx Systemic Lupus Erythematosus, Hx Thyroid Disease Cardiovascular History: Reports: Hx Hypercholesterolemia, Hx Hypertension, Other Cardiovascular Problems/Disorders - chronic left BBB Denies: Hx Congestive Heart Failure, Hx Pacemaker/ICD Respiratory History: Denies: Hx Asthma, Hx Chronic Obstructive Pulmonary Disease (COPD) GI History: Reports: Hx Diverticulosis, Hx Ileostomy - Reversal of colostomy Denies: Hx Ulcer, Other GI Disorders History: 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, Other Problems /Disorders - RENAL DISEASE/ CYSTIC KIDNEY DISEASE Denies: Hx Dialysis Musculoskeletal History: Reports: Hx Arthritis - BACK, NECK,, Hx Back Problems Denies: Hx Rheumatoid Arthritis, Hx Osteoporosis Sensory History: Reports: Hx Contacts or Glasses Denies: Hx Deafness, Hx Hearing Aid Opthamlomology History: Reports: Hx Contacts or Glasses Neurological History: Reports: Hx Dementia, Other Neuro Impairments/Disorders - PAIN CLINIC PT Denies: Hx Seizures Psychiatric History: Reports: Hx Anxiety - CONTROL WITH MEDICATION Denies: Hx Substance Abuse - Cancer History Hx Chemotherapy: No - Surgical History Surgery Procedure, Year, and Place: gallbladder removed, bowel surgery Hx Anesthesia Reactions: No - Immunization History Date of Tetanus Vaccine: Unknown Date of Influenza Vaccine: 2012 Infectious Disease History: No Infectious Disease History: Denies: Hx Hepatitis, Hx Human Immunodeficiency Virus (HIV), Traveled Outside the [place] in Last 30 Days - Family History Known Family History: Positive: Unknown - due to level 5 caveat - dementia - Social History Alcohol Use: None Substance Use Type: Reports: None Substance Use Comment - Amount & Last Used: oxycodone Smoking Status (MU): Never Smoked Tobacco Have You Smoked in the Last Year: No Review of Systems Positive: Fatigue, Other - non-communicative. Negative: Fever Positive: Cough, Other - chest congestion Gastrointestinal: Other - decreased appetite Positive: hematuria Positive: Weakness All Other Systems Reviewed And Are Negative: No - Comments Additional Review of Systems Comments: Patient is level 5 caveat. Physical Exam - Summary Physical Exam Summary: Appearance: no distress Skin: warm, dry, reflects adequate perfusion Head/face: normal Eyes: EOMI, DONALD ENT: normal Neck: supple, non-tender Respiratory: CTA, breath sounds present Cardiovascular: RRR, pulses symmetrical Abdomen: non-tender, soft Musculoskeletal: pulses present b/l Neuro: alert and confused Triage Information Reviewed: Yes Vital Signs On Initial Exam: Initial Vitals Temp Pulse Resp BP Pulse Ox 97.5 F 71 16 142/79 94 09/20/18 17:30 09/20/18 17:30 09/20/18 17:30 09/20/18 17:30 09/20/18 17:30 Vital Signs Reviewed: Yes Diagnostics - Vital Signs Vital Signs Temp Pulse Resp BP Pulse Ox 09/20/18 17:30 97.5 F 71 16 142/79 94 - Laboratory Result Diagrams: 09/20/18 18:33 09/20/18 18:33 Lab Statement: Any lab studies that have been ordered have been reviewed, and results considered in the medical decision making process. - Radiology CXR Radiology Interpretation Completed By: ED Physician - Negative. - CT Brain CT CT Interpretation Completed By: Radiologist Summary of CT Findings: 1. No acute intracranial abnormality. 2. No change from the comparison study. ED Physician has reviewed this report. - EKG 1841 Cardiac Rate: NL - 65 EKG Rhythm: Sinus Rhythm - paced Summary of EKG Findings: Paced Rhythm. No acute changes. Altered Mental Statu Course/Dx - Course Course Of Treatment: 78 year old F with a history of dementia brought to ED due to a decrease in alertness and increased weakness for the past two days. Patient lives at home with her daughters, who reports recent cough, congestion, fatigue, and decreased appetite. They deny fever. They state she is typically able to communicate her needs and walk by herself. However the past couple of days she has been unable to communicate and cannot ambulate by herself. Daughters suspect hematuria. Bloodwork is WNL. CXR is negative for disease. Brain CT reveals, " 1. No acute intracranial abnormality. 2. No change from the comparison study. ". UA is unremarkable. Flu swabs are negative. Patient is given 1000mls of IV fluids. Patient will be discharged home and is instructed to follow up with her PCP. Family is agreeable with this plan. - Diagnoses Differential Diagnosis/HQI/PQRI: Intracranial Bleed, Sepsis, Other - uti Provider Diagnoses: Dementia, Weakness Discharge - Sign-Out/Discharge Documenting (check all that apply): Patient Departure - discharge - Discharge Plan Condition: Stable Disposition: HOME Patient Education Materials: Dementia (ED), Weakness (ED) Referrals: Omari Raman MD [Primary Care Provider] - 2 Days Additional Instructions: RETURN TO THE EMERGENCY DEPARTMENT FOR CHANGING OR WORSENING SYMPTOMS. - Billing Disposition and Condition Condition: STABLE Disposition: Home - Attestation Statements Document Initiated by Lexie: Yes Documenting Scribe: Rocio Soni Provider For Whom Lexie is Documenting (Include Credential): Rolf Andersen MD Scribe Attestation: Rocio Ramey, scribed for Rolf Andersen MD on 09/20/18 at 2040. Scribe Documentation Reviewed: Yes Provider Attestation: The documentation as recorded by the Rocio santizo accurately reflects the service I personally performed and the decisions made by , Rolf Andersen MD Status of Scribe Document: Viewed
[2018-09-20 19:31] LABS: ABS Basophils 0 10^3/ul (0-0.2); ABS Eosinophils 0.1 10^3/ul (0-0.6); ABS Lymphocytes 1.5 10^3/ul (1.0-4.8); ABS Monocytes 0.6 10^3/ul (0-0.8); ABS Neutrophils 4.9 10^3/ul (1.5-7.7); ABS Nucleated RBC 0 10^3/ul; Eosinophil % 1.6 %; Hematocrit 37 % (35-47); Hemoglobin 12.6 g/dl (12.0-16.0); Lymphocyte % 20.4 %; Mean Corpuscular HGB Conc 34 g/dl (31-36); Mean Corpuscular Hemoglobin 32 pg (27-31); Mean Corpuscular Volume 95 fL (80-97); Mean Platelet Volume 10.1 fL (7.4-10.4); Nucleated Red Blood Cells % 0; Platelet Count 140 10^3/ul (150-450); Red Blood Count 3.93 10^6/ul (4.00-5.40); Red Cell Distribution Width 14 % (10.5-15); White Blood Count 7.1 10^3/ul (3.5-10.8)
[2018-09-20 19:41] LABS: INR 0.91 (0.77-1.02)
[2018-09-20 19:48] LABS: Albumin/Globulin Ratio 1.5 (1-3); BUN/Creatinine Ratio 17.5 (8-20); EGFR Non-African American 55.4 (>60); Globulin 2.7 g/dL (2-4); Potassium 4.4 mmol/L (3.5-5.0); Total Bilirubin 0.3 mg/dL (0.2-1.0); Total Protein 6.7 g/dL (6.4-8.9)
[2018-09-20 20:14] LABS: Urine Appearance Clear; Urine Color Yellow
[2018-09-20 20:15] LABS: Urine Ketones Negative (Negative); Urine Protein Negative (Negative); Urine Specific Gravity 1.005 (1.010-1.030); Urine Urobilinogen Negative (Negative)
[2018-09-20 20:16] LABS: Urine Blood Negative (Negative); Urine Nitrite Negative (Negative)
[2018-09-20 20:17] LABS: Urine Bilirubin Negative (Negative); Urine Glucose Negative (Negative)
[2018-09-20 20:54] VITALS: BP 181/70
== END 2018-09-20 19:50 | disposition home or self-care (01) ==
LOC: ED 17:22
DX: F03.90 Unspecified dementia, unspecified severity, without behavioral disturbance, psychotic disturbance, mood disturbance, and anxiety (principal); R53.1 Weakness; R31.9 Hematuria, unspecified; R53.83 Other fatigue
CPT/HCPCS: 36415; 70450; 71045; 80053; 81003; 83605; 84484; 85025; 85610; 93005; 99284

== ENCOUNTER 2018-10-25 00:06 | Emergency (ER) | payer MEDICARE ==
[2018-10-25 00:51] LABS: ABS Basophils 0.1 10^3/ul (0-0.2); ABS Eosinophils 0.2 10^3/ul (0-0.6); ABS Lymphocytes 1.8 10^3/ul (1.0-4.8); ABS Monocytes 0.8 10^3/ul (0-0.8); ABS Neutrophils 3.7 10^3/ul (1.5-7.7); ABS Nucleated RBC 0 10^3/ul; Eosinophil % 2.3 %; Hematocrit 34 % (35-47); Hemoglobin 11.8 g/dl (12.0-16.0); Lymphocyte % 27.8 %; Mean Corpuscular HGB Conc 35 g/dl (31-36); Mean Corpuscular Hemoglobin 33 pg (27-31); Mean Corpuscular Volume 95 fL (80-97); Mean Platelet Volume 9.6 fL (7.4-10.4); Nucleated Red Blood Cells % 0.1; Platelet Count 155 10^3/ul (150-450); Red Cell Distribution Width 13 % (10.5-15); White Blood Count 6.6 10^3/ul (3.5-10.8)
[2018-10-25 00:59] LABS: Influenza A Molecular NEGATIVE (Negative); Influenza B Molecular NEGATIVE (Negative)
[2018-10-25 01:10] LABS: Albumin 3.8 g/dL (3.2-5.2); Albumin/Globulin Ratio 1.5 (1-3); BUN/Creatinine Ratio 29.1 (8-20); C Reactive Protein 1.36 mg/L (<8.01); EGFR Non-African American 63.7 (>60); Globulin 2.5 g/dL (2-4); Potassium 4.1 mmol/L (3.5-5.0); Total Bilirubin 0.2 mg/dL (0.2-1.0); Total Protein 6.3 g/dL (6.4-8.9)
--- NOTE | 2018-10-25 01:39 | ED ---
Respiratory - HPI Summary HPI Summary: [facility] from [facility] with complaint of low O2 sats and cough. Patient has history dementia cannot answer history of present illness questions. Patient accompanied by family member states patient has chronic cough, has been evaluated for same symptoms on prior visit to [facility] [place] [place] with negative findings. Patient appears in no apparent distress, 92-96% 02 sats on room air. Medical history is HTN, HDL, dementia. - History of Current Complaint Chief Complaint: EDRespiratoryDistress Stated Complaint: SOB Time Seen by Provider: 10/25/18 00:08 Hx Obtained From: Family/[employer] Installer Onset/Duration: Sudden Onset Current Severity: None Pain Intensity: 0 Character: Cough (Nonproductive) Sputum Amount: None Alleviating Factor(s): Nothing Associated Signs and Symptoms: Negative - Allergy/Home Medications Allergies/Adverse Reactions: Allergies Allergy/AdvReac Type Severity Reaction Status Date / Time No Known Allergies Allergy Verified 09/20/18 17:36 PMH/Surg Hx/FS Hx/Imm Hx Endocrine/Hematology History: Denies: Hx Anticoagulant Therapy, Hx Diabetes, Hx Systemic Lupus Erythematosus, Hx Thyroid Disease Cardiovascular History: Reports: Hx Hypercholesterolemia, Hx Hypertension, Other Cardiovascular Problems/Disorders - chronic left BBB Denies: Hx Congestive Heart Failure, Hx Pacemaker/ICD Respiratory History: Denies: Hx Asthma, Hx Chronic Obstructive Pulmonary Disease (COPD) GI History: Reports: Hx Diverticulosis, Hx Ileostomy - Reversal of colostomy Denies: Hx Ulcer, Other GI Disorders History: 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, Other Problems /Disorders - RENAL DISEASE/ CYSTIC KIDNEY DISEASE Denies: Hx Dialysis Musculoskeletal History: Reports: Hx Arthritis - BACK, NECK,, Hx Back Problems Denies: Hx Rheumatoid Arthritis, Hx Osteoporosis Sensory History: Reports: Hx Contacts or Glasses Denies: Hx Deafness, Hx Hearing Aid Opthamlomology History: Reports: Hx Contacts or Glasses Neurological History: Reports: Hx Dementia, Other Neuro Impairments/Disorders - PAIN CLINIC PT Denies: Hx Seizures Psychiatric History: Reports: Hx Anxiety - CONTROL WITH MEDICATION Denies: Hx Substance Abuse - Cancer History Hx Chemotherapy: No - Surgical History Surgery Procedure, Year, and Place: gallbladder removed, bowel surgery Hx Anesthesia Reactions: No - Immunization History Date of Tetanus Vaccine: Unknown Date of Influenza Vaccine: 2012 Infectious Disease History: No Infectious Disease History: Denies: Hx Hepatitis, Hx Human Immunodeficiency Virus (HIV), Traveled Outside the [place] in Last 30 Days - Family History Known Family History: Positive: Unknown - due to level 5 caveat - dementia - Social History Alcohol Use: None Substance Use Type: Reports: None Substance Use Comment - Amount & Last Used: oxycodone Smoking Status (MU): Never Smoked Tobacco Have You Smoked in the Last Year: No Review of Systems Constitutional: Negative Eyes: Negative ENT: Negative Cardiovascular: Negative Positive: Shortness Of Breath, Cough Gastrointestinal: Negative Genitourinary: Negative Musculoskeletal: Negative Skin: Negative Neurological: Negative Psychological: Normal All Other Systems Reviewed And Are Negative: Yes Physical Exam - Summary Physical Exam Summary: Patient cannot answer history of present illness questions. RRR. Lung sounds clear to auscultation bilaterally. Abdomen soft nontender. No peripheral edema. Triage Information Reviewed: Yes Vital Signs On Initial Exam: Initial Vitals Pulse Resp BP Pulse Ox 78 18 133/69 93 10/25/18 00:10 10/25/18 00:10 10/25/18 00:10 10/25/18 00:10 Vital Signs Reviewed: Yes Appearance: Positive: Well-Appearing Skin: Positive: Warm Head/Face: Positive: Normal Head/Face Inspection Eyes: Positive: Normal Neck: Positive: Supple Respiratory/Lung Sounds: Positive: Clear to Auscultation Cardiovascular: Positive: Normal Abdomen Description: Positive: Nontender Musculoskeletal: Positive: Normal Neurological: Negative: Facial Droop, Focal Deficit @, Slurred Speech Psychiatric: Positive: Normal AVPU Assessment: Alert - Mirna Coma Scale Best Eye Response: 4 - Spontaneous Best Motor Response: 6 - Obeys Commands Best Verbal Response: 5 - Oriented Coma Scale Total: 15 Diagnostics - Vital Signs Vital Signs Temp Pulse Resp BP Pulse Ox 10/25/18 01:00 79 16 94 10/25/18 00:40 82 17 115/62 92 10/25/18 00:26 78 16 92 10/25/18 00:11 98.0 F 80 15 133/69 92 10/25/18 00:10 78 18 133/69 93 - Laboratory Lab Results: Lab Results 10/25/18 10/25/18 10/25/18 Range/Units 00:38 00:38 00:38 WBC 6.6 (3.5-10.8) 10^3/ul RBC 3.60 L (4.00-5.40) 10^6/ul Hgb 11.8 L (12.0-16.0) g/dl Hct 34 L (35-47) % MCV 95 (80-97) fL MCH 33 H (27-31) pg MCHC 35 (31-36) g/dl RDW 13 (10.5-15) % Plt Count 155 (150-450) 10^3/ul MPV 9.6 (7.4-10.4) fL Neut % (Auto) 56.7 % Lymph % (Auto) 27.8 % [place] % (Auto) 12.2 % Eos % (Auto) 2.3 % Baso % (Auto) 1.0 % Absolute Neuts (auto) 3.7 (1.5-7.7) 10^3/ul Absolute Lymphs (auto) 1.8 (1.0-4.8) 10^3/ul Absolute Monos (auto) 0.8 (0-0.8) 10^3/ul Absolute Eos (auto) 0.2 (0-0.6) 10^3/ul Absolute Basos (auto) 0.1 (0-0.2) 10^3/ul Absolute Nucleated RBC 0 10^3/ul Nucleated RBC % 0.1 Sodium 141 (135-145) mmol/L Potassium 4.1 (3.5-5.0) mmol/L Chloride 106 (101-111) mmol/L Carbon Dioxide 31 (22-32) mmol/L Anion Gap 4 (2-11) mmol/L BUN 25 H (6-24) mg/dL Creatinine 0.86 (0.51-0.95) mg/dL Est GFR ( Amer) 77.0 (>60) Est GFR (Non-Af Amer) 63.7 (>60) BUN/Creatinine Ratio 29.1 H (8-20) Glucose 100 (70-100) mg/dL Lactic Acid 1.0 (0.5-2.0) mmol/L Calcium 10.0 (8.6-10.3) mg/dL Total Bilirubin 0.20 (0.2-1.0) mg/dL AST 15 (13-39) U/L ALT 17 (7-52) U/L Alkaline Phosphatase 59 (34-104) U/L Troponin I 0.00 (<0.04) ng/mL C-Reactive Protein 1.36 (<8.01) mg/L Total Protein 6.3 L (6.4-8.9) g/dL Albumin 3.8 (3.2-5.2) g/dL Globulin 2.5 (2-4) g/dL Albumin/Globulin Ratio 1.5 (1-3) Influenza A (Rapid) (Negative) Influenza B (Rapid) (Negative) 10/25/18 Range/Units 00:46 WBC (3.5-10.8) 10^3/ul RBC (4.00-5.40) 10^6/ul Hgb (12.0-16.0) g/dl Hct (35-47) % MCV (80-97) fL MCH (27-31) pg MCHC (31-36) g/dl RDW (10.5-15) % Plt Count (150-450) 10^3/ul MPV (7.4-10.4) fL Neut % (Auto) % Lymph % (Auto) % [place] % (Auto) % Eos % (Auto) % Baso % (Auto) % Absolute Neuts (auto) (1.5-7.7) 10^3/ul Absolute Lymphs (auto) (1.0-4.8) 10^3/ul Absolute Monos (auto) (0-0.8) 10^3/ul Absolute Eos (auto) (0-0.6) 10^3/ul Absolute Basos (auto) (0-0.2) 10^3/ul Absolute Nucleated RBC 10^3/ul Nucleated RBC % Sodium (135-145) mmol/L Potassium (3.5-5.0) mmol/L Chloride (101-111) mmol/L Carbon Dioxide (22-32) mmol/L Anion Gap (2-11) mmol/L BUN (6-24) mg/dL Creatinine (0.51-0.95) mg/dL Est GFR ( Amer) (>60) Est GFR (Non-Af Amer) (>60) BUN/Creatinine Ratio (8-20) Glucose (70-100) mg/dL Lactic Acid (0.5-2.0) mmol/L Calcium (8.6-10.3) mg/dL Total Bilirubin (0.2-1.0) mg/dL AST (13-39) U/L ALT (7-52) U/L Alkaline Phosphatase (34-104) U/L Troponin I (<0.04) ng/mL C-Reactive Protein (<8.01) mg/L Total Protein (6.4-8.9) g/dL Albumin (3.2-5.2) g/dL Globulin (2-4) g/dL Albumin/Globulin Ratio (1-3) Influenza A (Rapid) Negative (Negative) Influenza B (Rapid) Negative (Negative) Result Diagrams: 10/25/18 00:38 10/25/18 00:38 Lab Statement: Any lab studies that have been ordered have been reviewed, and results considered in the medical decision making process. Disposition - Course Course Of Treatment: Patient presents from [facility] with complaint of low O2 sats and cough. Patient has history dementia cannot answer history of present illness questions. Patient accompanied by family member states patient has chronic cough, has been evaluated for same symptoms on prior visit to [facility] [place] [place] with negative findings. Patient appears in no apparent distress, 92-96% 02 sats on room air. Medical history is HTN, HDL, dementia. Physical exam: Patient cannot answer history of present illness questions. RRR. Lung sounds clear to auscultation bilaterally. Abdomen soft nontender. No peripheral edema. Vital signs within normal limits on room air. Labs unremarkable. Chest x-ray unremarkable. EKG sinus rhythm LVH with strain pattern, no significant change from prior EKG on 09/20/18. ABG on room air unremarkable. Flu negative. Discussed pt with Dr Liu who agreed patient could be [facility]. - Diagnoses Provider Diagnoses: Low O2 saturation Discharge - Sign-Out/Discharge Documenting (check all that apply): Patient Departure Patient Received Moderate/Deep Sedation with Procedure: No - Discharge Plan Condition: Stable Disposition: LONGTERM FACILITY Patient Education Materials: Shortness of Breath (ED) Referrals: Omari Raman MD [Primary Care Provider] - Additional Instructions: Follow-up with primary care. Return to the ED for any new or worsening symptoms - Billing Disposition and Condition Condition: STABLE Disposition: Prison Facility
[2018-10-25 02:35] VITALS: BP 143/78
== END 2018-10-25 03:05 ==
LOC: ED 00:06
DX: R09.02 Hypoxemia (principal); R05 Cough; F03.90 Unspecified dementia, unspecified severity, without behavioral disturbance, psychotic disturbance, mood disturbance, and anxiety; F41.9 Anxiety disorder, unspecified
CPT/HCPCS: 36415; 71046; 80053; 82803; 83605; 84484; 85025; 86140; 93005; 99283